=== PATIENT | male | born 1950 | race Caucasian/White ===

== ENCOUNTER → 2018-12-22 09:07 | Outpatient (CLI) | payer OTHER, SELFPAY ==
--- NOTE | 2018-12-22 14:38 | RT ---
Addendum entered by Estefany Santo RT 12/22/18 14:51: Original Note: REST AND EXERCISE OXIMETERY AND O2 TITRATION TIME DISTANCE OXYGEN LEVEL O2 SAT PULSE BRITTANY PRE AT REST ROOM AIR 95% 78 1 :40 40 FT RA 94% 83 2 1:40 140 FT RA 93% 87 3 2:40 240 FT RA 93% 89 3 3:45 340 FT RA 92% 88 4 4:45 440 FT RA 92% 98 4 5:50 540 FT RA 92% 89 4 6:25 610 FT RA 93% 88 4 POST 3 MINS POST EXERCISE RA 95% 76 1 Comments: No issues Testing performed by Temo Tuttle [employer], CPFT
== END ==
PROVIDERS: Visit Provider Internal Medicine
DX: J43.2 Centrilobular emphysema (principal)

== ENCOUNTER → 2018-12-22 10:47 | Outpatient (CLI) | payer OTHER, SELFPAY ==
--- NOTE | 2018-12-22 | DI.CT.S_ITS ---
PROCEDURE: CT CHEST WO CON INDICATIONS: Other forms of dyspnea TECHNIQUE: Noncontrast 5 mm thick sections acquired from the pulmonary apices to the posterior costophrenic angles. 1 mm lung window, 5 mm thick coronal and sagittal and 7 mm axial MIP reformats were then acquired. For radiation dose reduction, the following was used: automated exposure control, adjustment of mA and/or kV according to patient size. COMPARISON: None. FINDINGS: Image quality: Excellent. Lungs and pleura: There is a 2 mm nodule in the left lower lobe (series 2 image 292). Bilateral subpleural septal thickening bilaterally, predominantly involving upper lobes. Bipical nodular densities are most likely scars. No focal consolidations. No pleural effusions or pneumothorax. Central and peripheral airways are patent and normal in caliber. Mediastinum: Heart size is normal. No pericardial effusion. There is coronary artery bypass grafting. No mediastinal adenopathy by size criteria. Thoracic aorta and central pulmonary arteries are normal in size. Esophagus is normal in caliber. No hiatal hernia. Bones and chest wall: Sternotomy. No suspicious bony lesions. No vertebral body compression fractures. No axillary or supraclavicular adenopathy by size criteria. Thyroid gland is normal. Abdomen: Visualized upper abdominal solid organs and bowel loops appear normal in the absence of contrast. IMPRESSION: 1. Subpleural septal thickening bilaterally, predominantly involving upper lobes. Early interstitial lung disease is suspected. 2. A 2 mm left lower lobe lung nodule. Please see enclosed followup recommendation. 3. Coronary artery bypass grafting. Fleischner Society criteria for SOLID lung nodule followup. Nodule size (mm)Low-risk patientHigh-risk patient?4No follow-up neededFollow-up at 12 mo; if no change, no further follow-up>7-6Xpmeri-pl CT at 12 mo; if no change, no further follow-up needed.Initial follow-up CT at 6-12 mo, then 18-24 mo if no change. >6-8Initial follow-up CT at 6-12 mo, then 18-24 mo if no change. Initial follow-up CT at 3-6 mo, then 9-12 mo and 24 mo if no change. >8Follow-up CT at 3, 9, 24 mo. Or PET and/or biopsy.Same as for low-risk pts. Dictated by: Ame Palmer M.D. on 12/22/2018 at 16:26 Approved by: Ame Palmer M.D. on 12/22/2018 at 16:34
== END ==
PROVIDERS: Visit Provider Internal Medicine
DX: R06.09 Other forms of dyspnea (principal); R91.1 Solitary pulmonary nodule; Z95.1 Presence of aortocoronary bypass graft
CPT/HCPCS: 71250

== ENCOUNTER → 2018-12-26 08:58 | Outpatient (CLI) | payer OTHER, SELFPAY ==
--- NOTE | 2018-12-30 16:10 | PM.PFT.1 ---
Pulmonary Function Test Referral & Results Date Patient Seen: 12/26/18 Requesting provider: Antwan Carrillo Results: The spirometry demonstrates an FVC of 3.24 L which is 60% of predicted. The FEV1 was measured at 1.21 L which is 30% of predicted. The FEV1/FVC ratio was 37 which is 50% of predicted. Following the administration of bronchodilator there was a 12% improvement in FEV1 and a 28% improvement in FEF 25-75%. Lung volumes show an SVC of 3.36 L which is 63% of predicted. The diffusing capacity was measured at 19.55 which is 50% of predicted. No hemoglobin value was provided, so no correction for potential anemia could be made, if appropriate. 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
== END ==
PROVIDERS: Visit Provider Internal Medicine
DX: J43.2 Centrilobular emphysema (principal); J98.8 Other specified respiratory disorders
CPT/HCPCS: 94060; 94729

== ENCOUNTER → 2019-03-09 15:11 | Outpatient (CLI) | payer OTHER, SELFPAY ==
[2019-01-25 09:08] VITALS: BMI 29.9
--- NOTE | 2019-03-09 | DI.RAD.S_ITS ---
PROCEDURE: XR CHEST 2V INDICATIONS: INTERSTITIAL LUNG DISEASE/PNEUMONIA TECHNIQUE: 2 views of the chest were acquired. COMPARISON: , CT, CT CHEST WO CON, 12/22/2018, 10:48. FINDINGS: Surgical changes and devices: Sternotomy and CABG. Lungs and pleura: Lungs are clear. No pleural effusions or pneumothorax. Mediastinum: Mediastinal contours are normal. Heart size is normal. Bones and chest wall: No suspicious bony abnormalities. Soft tissues appear unremarkable. IMPRESSION: No acute cardiopulmonary disease. Dictated by: Ame Palmer M.D. on 03/09/2019 at 16:28 Approved by: Ame Palmer M.D. on 03/09/2019 at 16:29
== END ==
PROVIDERS: Visit Provider Internal Medicine Pulmonary Disease
DX: J84.9 Interstitial pulmonary disease, unspecified (principal)
CPT/HCPCS: 71046

== ENCOUNTER → 2019-11-21 10:11 | Outpatient (CLI) | payer OTHER, SELFPAY ==
[2019-01-25 09:08] VITALS: BMI 29.9
[2019-11-22 09:16] LABS: COVID19 Sendout Not Detected (Not Detect)
== END ==
PROVIDERS: Visit Provider Nurse Practitioner
DX: Z11.59 Encounter for screening for other viral diseases (principal)
CPT/HCPCS: 87635

== ENCOUNTER → 2019-11-24 13:01 | Outpatient (CLI) | payer OTHER, SELFPAY ==
[2019-01-25 09:08] VITALS: BMI 29.9
--- NOTE | 2019-11-29 09:26 | PM.PFT.1 ---
Pulmonary Function Test Referral & Results Date Patient Seen: 11/24/19 Requesting provider: Antwan Carrillo Results: The spirometry demonstrates an FVC of 3.50 L which is 65% of predicted. The FEV1 was measured at 1.39 L which is 35% of predicted. The FEV1/FVC ratio was 40 which is 53% of predicted. Following the administration of bronchodilator there was a 21% improvement in FEF 25-75%. Lung volumes show an SVC of 3.35 L which is 62% of predicted. The diffusing capacity was measured at 21.35 which is 54% of predicted. No hemoglobin value was provided, so no correction for potential anemia could be made, if appropriate. The maximum voluntary ventilation was reduced Interpretation: This study demonstrates moderately severe obstructive lung disease based on severe reduction FEV1 as well as FEV1/FVC ratio. There is minimal evidence of benefit following bronchodilator however the 21% improvement in FEF 25-75% with suggest some moderate improvement in small airway flow There is also moderate restrictive lung disease based on reduction SVC There is also a notable reduction in diffusing capacity suggesting significant disease at the capillary alveolar level Compared to PFTs performed in December 2018, current study is essentially unchanged
== END ==
PROVIDERS: Referring Provider Internal Medicine; Visit Provider Internal Medicine
DX: J43.2 Centrilobular emphysema (principal); Z87.891 Personal history of nicotine dependence
CPT/HCPCS: 94060; 94726; 94729

== ENCOUNTER → 2020-01-12 12:17 | Outpatient (CLI) | payer OTHER, SELFPAY ==
[2019-01-25 09:08] VITALS: BMI 29.9
--- NOTE | 2020-01-12 | DI.CT.S_ITS ---
PROCEDURE: CT CHEST WO CON INDICATIONS: Solitary pulmonary nodule TECHNIQUE: Noncontrast 2.0-2.5 mm thick sections acquired from the pulmonary apices to the posterior costophrenic angles. 7 mm thick axial MIP and 5 mm coronal and sagittal reformats were then acquired. A low radiation dose technique was utilized. COMPARISON: [facility], CT, CT ANGIO CHEST PE, 03/27/2019, 21:23. [facility], MR, MR LUMBAR SPINE WITHOUT CONTRAST, 03/28/2019, 8:35. [facility], CT, CT CHEST WO CON, 12/22/2018, 10:48. FINDINGS: Image quality: Diagnostic, given the low radiation dose technique. Lungs and pleura: On the prior CT scan of the chest from 12/22/18 a 2 mm nodule was identified. This is no longer seen. No new nodule has developed. Mediastinum: Heart size is normal. No pericardial effusion. No mediastinal adenopathy by size criteria. Thoracic aorta and central pulmonary arteries are normal in size. Esophagus is normal in caliber. No hiatal hernia. Bones and chest wall: No suspicious bony lesions. No vertebral body compression fractures. No axillary or supraclavicular adenopathy by size criteria. Thyroid gland appears normal where well seen . Abdomen: Visualized upper abdomen solid organs and bowel loops appear normal in the absence of contrast. IMPRESSION: Resolution of a 2 mm nodule posterolateral left lower lung, no follow-up recommended targeted to that prior area of concern. Dictated by: Selwyn Aguilera M.D. on 01/12/2020 at 13:17 Approved by: Selwyn Aguilera M.D. on 01/12/2020 at 13:22
== END ==
PROVIDERS: Referring Provider Internal Medicine; Visit Provider Internal Medicine
DX: R91.1 Solitary pulmonary nodule (principal)
CPT/HCPCS: 71250